=== PATIENT | male | born 1995 | race Caucasian/White ===

== ENCOUNTER 2019-11-24 07:40 | Outpatient (NON) | payer BC, SELFPAY ==
[2019-11-24 23:09] LABS: SARS-CoV-2 RNA PCR Negative
== END 2019-11-24 07:41 ==
PROVIDERS: PCP Emergency Medicine; Visit Provider Emergency Medicine
DX: R68.89 Other general symptoms and signs (principal); Z20.828 Contact with and (suspected) exposure to other viral communicable diseases
CPT/HCPCS: 87635; C9803; U0003

== ENCOUNTER 2020-01-07 06:54 | Outpatient (NON) | payer BC, SELFPAY ==
[2020-01-08 06:47] LABS: SARS-CoV-2 RNA PCR Negative
== END 2020-01-07 06:55 ==
PROVIDERS: PCP Emergency Medicine; Visit Provider Emergency Medicine
DX: Z20.828 Contact with and (suspected) exposure to other viral communicable diseases (principal)
CPT/HCPCS: 87635; C9803; U0003

== ENCOUNTER 2021-06-24 14:50 | Emergency (ER) | payer BC, SELFPAY ==
[2021-06-24 15:03] VITALS: BP 119/91; PULSE 93; RESP 16; TEMP 37.1; O2SAT 100
--- NOTE | 2021-06-24 15:33 | ED.URI ---
HPI - URI/Sore Throat General Chief Complaint: Upper Respiratory Infection Stated Complaint: Stuffy Nose,Cough,Shortness of Breath,Fatigue Time Seen by Provider: 06/24/21 15:15 Source: patient and RN notes reviewed Mode of arrival: ambulatory Limitations: no limitations History of Present Illness HPI Narrative: Patient presents today with a 3-day history of, congestion, rhinorrhea, fatigue, and sinus pressure. He had a sore throat on the first day of illness, but this has since resolved. Denies shortness of breath, fever. Denies any history of asthma or COPD. He does report history of, hayfever as a child. He has been using tea with honey and 1 dose of DayQuil with mild relief. States symptoms have improved since onset. MD elicited complaint: cough, nasal congestion and sinus pain Related Data Home Medications Medication Instructions Recorded Confirmed No Home Medications 06/24/21 06/24/21 Allergies Allergy/AdvReac Type Severity Reaction Status Date / Time No Known Allergies Allergy Verified 06/24/21 15:00 Review of Systems Review of Systems: CONSTITUTIONAL: Denies body aches, fever, chills, or sweats.+ Fatigue EYES: Denies visual changes, redness, or discharge. ENT: Denies sore throat, or otalgia.+ Congestion, rhinorrhea, sinus pressure CARDIOVASCULAR: Denies chest pain, palpitations, or edema. RESPIRATORY: Denies dyspnea.+ Cough GASTROINTESTINAL: Denies abdominal pain, nausea, vomiting, or diarrhea. GENITOURINARY: Denies dysuria or hematuria. SKIN: Denies rash, itching, or wounds. MUSCULOSKELETAL: Denies back pain, joint pain, or myalgia. NEUROLOGIC: Denies headache, numbness, tingling, or weakness. PSYCH: Denies depression or anxiety. PENDING SALE TO [facility] Past Medical History Medical History (Updated 06/24/21 @ 15:37 by Danya Burgess, SENIOR CLINICAL STUDY MANAGER, ) Seasonal allergies Comments At time of signature, I have reviewed and agree with nursing past medical, surgical, social and family history unless otherwise noted. Please see nursing chart for further information. There is no relevant family history pertinent to the presenting complaint Exam Narrative: GENERAL: Well-appearing, well-nourished, and in no acute distress. HEAD: Normocephalic, atraumatic. EYES: EOMI. No redness or drainage. Conjunctivae normal. ENT: Mucous membranes pink and moist. Nares congested. Bilateral swollen nasal turbinates with clear nasal drainage. TMs normal bilaterally. Throat normal with small amount of clear postnasal drainage. Uvula midline. NECK: Normal AROM. Supple. No lymphadenopathy. CHEST: No respiratory distress. Clear to auscultation. HEART: Regular rate and rhythm. No murmur appreciated. Normal peripheral pulses. EXTREMITIES: Normal range of motion. No edema. SKIN: Warm, dry, no rash. Capillary refill normal. Normal skin turgor. NEURO: No focal deficits. Alert and oriented x3. Gait steady. PSYCH: Normal affect. No signs of depression or anxiety. Course Course Level of Care: Express Care Visit Vital Signs Vital signs: Vital Signs Temperature 98.7 F 06/24/21 15:03 Pulse Rate 93 06/24/21 15:03 Respiratory Rate 16 06/24/21 15:03 Blood Pressure 119/91 H 06/24/21 15:03 Pulse Oximetry 100 06/24/21 15:03 Temperature 98.7 F 06/24/21 15:03 Pulse Rate 93 06/24/21 15:03 Respiratory Rate 16 06/24/21 15:03 Blood Pressure 119/91 H 06/24/21 15:03 Pulse Oximetry 100 06/24/21 15:03 Reviewed. Pt has been instructed to follow up with his PCP regarding his elevated blood pressure today. MDM - URI/Sore Throat Differential Diagnosis Differential diagnosis: Likely upper respiratory infection, otitis media, sinusitis, viral infection, bronchitis, influenza, pharyngitis and other (Strep throat, COVID-19) Lab Data Attestation: I reviewed the patient's lab results. Labs: Lab Results 06/24/21 Range/Units 15:10 POC SARS CoV-2 Ag Negative (Negative) Influenza A Screen Negative
== END 2021-06-24 15:36 | disposition home or self-care (01) ==
PROVIDERS: Emergency Provider Nurse Practitioner; PCP Emergency Medicine
DX: J30.89 Other allergic rhinitis (principal); Z20.822 Contact with and (suspected) exposure to COVID-19
CPT/HCPCS: 87081; 87426; 87804; 87880; 99213; C9803; G0463

== ENCOUNTER 2021-08-31 14:15 | Emergency (ER) | payer BC, SELFPAY ==
[2021-08-31 14:22] VITALS: BP 136/77; PULSE 107; RESP 12; TEMP 38; O2SAT 100
--- NOTE | 2021-08-31 14:41 | ED.URI ---
HPI - URI/Sore Throat General Chief Complaint: Upper Respiratory Infection Stated Complaint: Headache,Fatigue,Bilateral Eye Irriation Time Seen by Provider: 08/31/21 14:41 Source: patient, RN notes reviewed and old records reviewed Mode of arrival: ambulatory Limitations: no limitations History of Present Illness HPI Narrative: 26-year-old male who presents to [facility] with complaints of cleaning his shower which had mold on it using beba dish soap and sponge yesterday evening while running the water. He states that last night he started having headache, fatigue, and eye irritation and sore throat. Patient denies any visual changes, denies any shortness of breath or any acute cough. Patient is concerned that he is having reaction to mold. MD elicited complaint: other (headache fatigue and eye irritation) Related Data Home Medications Medication Instructions Recorded Confirmed No Home Medications 06/24/21 08/31/21 Allergies Allergy/AdvReac Type Severity Reaction Status Date / Time No Known Allergies Allergy Verified 08/31/21 14:22 Review of Systems Review of Systems: CONSTITUTIONAL: Denies known fever, chills, or sweats. EYES: Denies visual changes, redness, or discharge.reports eyes feel irritated ENT: positive rhinorrhea, congestion, sore throat, no otalgia. CARDIOVASCULAR: Denies chest pain, palpitations, or edema. RESPIRATORY: Denies cough or dyspnea. GASTROINTESTINAL: Denies abdominal pain, nausea, vomiting, or diarrhea. GENITOURINARY: Denies dysuria or hematuria. SKIN: Denies rash or itching. MUSCULOSKELETAL: Denies back pain, joint pain, or myalgia. NEUROLOGIC: positive for headache,no numbness, or weakness. PSYCHIATRIC: Denies anxiety or depression. All systems reviewed & are unremarkable except as noted in HPI and below PMFSH Past Medical History Medical History (Updated 09/02/21 @ 02:42 by Arcelia Pandey NP) Anxiety and depression History of ear infections as a child Seasonal allergies Surgical History Surgical History (Updated 09/02/21 @ 02:42 by Arcelia Pandey NP) No history of previous surgery Family History Family History (Updated 09/02/21 @ 02:43 by Arcelia Pandey NP) Grandparent Carcinoma of colon Heart disease Hypertension Social History Social History (Updated 09/02/21 @ 02:44 by Arcelia Pandey NP) Smoking status: Never smoker Alcohol intake: current Alcohol use details: rare Substance use: former Substance use type: marijuana Gender identity (if verbalized by the patient): Male Comments At time of signature, agree with nursing past medical, surgical, social and family history. There is no relevant family history pertinent to the presenting complaint Exam Narrative: GENERAL: Well-appearing, well-nourished, and in no acute distress. HEAD: Normocephalic, atraumatic. EYES: PERRLA and EOMI. ENT: Nares ed with clear rhinorrhea no epistaxis. Mucous membranes moist.TM's normal with good light reflex, throat red with no lesions or exudates or tonsil swelling. NECK: Supple, no lymphadenopathy CHEST: Clear to auscultation. No respiratory distress.SAO2 100% on room air HEART: Regular rate and rhythm. No murmur heard. Normal peripheral pulses. ABDOMEN: Soft, nontender, nondistended, normal active bowel sounds. EXTREMITIES: Normal range of motion. No edema. SKIN: Warm, dry, no rash. NEURO: No focal deficits. Alert and oriented x3. Course Course Level of Care: Express Care Visit Vital Signs Vital signs: Vital Signs Temperature 38.0 C H 08/31/21 14:22 Pulse Rate 107 H 08/31/21 14:22 Respiratory Rate 12 08/31/21 14:22 Blood Pressure 136/77 08/31/21 14:22 Pulse Oximetry 100 08/31/21 14:22 Oxygen Delivery Room Air 08/31/21 14:22 Temperature 38.0 C H 08/31/21 14:22 Pulse Rate 107 H 08/31/21 14:22 Respiratory Rate 12 08/31/21 14:22 Blood Pressure 136/77 08/31/21 14:22 Pulse Oximetry 100 08/31/21 14:22 Oxygen Del
== END 2021-08-31 15:14 | disposition home or self-care (01) ==
PROVIDERS: Emergency Provider Registered Nurse; PCP Emergency Medicine
DX: J06.9 Acute upper respiratory infection, unspecified (principal)
CPT/HCPCS: 87081; 87880; 99213; G0463

== ENCOUNTER 2023-02-15 13:36 | Emergency (ER) | payer BC, SELFPAY ==
[2023-02-15 13:44] VITALS: BP 131/79; PULSE 85; RESP 16; TEMP 36.8; O2SAT 98
--- NOTE | 2023-02-15 14:15 | ED.URI ---
HPI - URI/Sore Throat General Chief Complaint: Upper Respiratory Infection Stated Complaint: Sore Throat/Ear Irritation Time Seen by Provider: 02/15/23 14:02 Source: patient and RN notes reviewed Mode of arrival: ambulatory Limitations: no limitations History of Present Illness HPI Narrative: Patient presents today complaining of sore throat, right ear pain, rhinorrhea, body aches, fatigue. Symptoms began yesterday. Currently rates his pain 4/10 and has tried no [id number] treatment prior to arrival. Patient called off work and needs a note to return. He is requesting to be tested for influenza, COVID, and strep Related Data Home Medications Medication Instructions Recorded Confirmed No Home Medications 06/24/21 02/15/23 Allergies Allergy/AdvReac Type Severity Reaction Status Date / Time No Known Allergies Allergy Verified 02/15/23 13:42 Review of Systems Review of Systems: CONSTITUTIONAL: Denies fever, chills, or sweats.+ body aches, fatigue EYES: Denies visual changes, redness, or discharge. ENT: Denies congestion. + rhinorrhea, sore throat, right ear pain CARDIOVASCULAR: Denies chest pain, palpitations, or edema. RESPIRATORY: Denies cough or dyspnea. GASTROINTESTINAL: Denies abdominal pain, nausea, vomiting, or diarrhea. GENITOURINARY: Denies dysuria or hematuria. SKIN: Denies rash, itching, or wounds. MUSCULOSKELETAL: Denies back pain, joint pain, or myalgia. NEUROLOGIC: Denies headache, numbness, tingling, or weakness. PSYCH: Denies depression or anxiety. [facility] Past Medical History Medical History Anxiety and depression History of ear infections as a child Seasonal allergies Surgical History Surgical History No history of previous surgery Family History Family History Grandparent Carcinoma of colon Heart disease Hypertension Social History Social History Smoking status: Never smoker Alcohol intake: current Alcohol use details: rare Substance use: former Substance use type: marijuana Gender identity (if verbalized by the patient): Male Comments At time of signature, I have reviewed and agree with nursing past medical, surgical, social and family history unless otherwise noted. Please see nursing chart for further information. There is no relevant family history pertinent to the presenting complaint Exam Narrative: GENERAL: Well-appearing, well-nourished, and in no acute distress. HEAD: Normocephalic, atraumatic. EYES: EOMI. No redness or drainage. Conjunctivae normal. ENT: Mucous membranes pink and moist. Nares clear. No rhinorrhea. TMs normal bilaterally. Throat normal. Uvula midline. NECK: Normal AROM. Supple. No lymphadenopathy. CHEST: No respiratory distress. Clear to auscultation. HEART: Regular rate and rhythm. No murmur appreciated. EXTREMITIES: Normal range of motion. No edema. SKIN: Warm, dry, no rash. Capillary refill normal. Normal skin turgor. NEURO: No focal deficits. Alert and oriented x3. Gait steady. PSYCH: Normal affect. No signs of depression or anxiety. Course Course Level of Care: Express Care Visit Vital Signs Vital signs: Vital Signs Temperature 98.3 F 02/15/23 13:44 Pulse Rate 85 02/15/23 13:44 Respiratory Rate 16 02/15/23 13:44 Blood Pressure 131/79 02/15/23 13:44 Pulse Oximetry 98 02/15/23 13:44 Oxygen Delivery Room Air 02/15/23 13:44 Temperature 98.3 F 02/15/23 13:44 Pulse Rate 85 02/15/23 13:44 Respiratory Rate 16 02/15/23 13:44 Blood Pressure 131/79 02/15/23 13:44 Pulse Oximetry 98 02/15/23 13:44 Oxygen Delivery Room Air 02/15/23 13:44 Reviewed MDM - URI/Sore Throat MDM Narrative Medical decision making narrative:
== END 2023-02-15 14:19 | disposition home or self-care (01) ==
PROVIDERS: Emergency Provider Nurse Practitioner; PCP Emergency Medicine
DX: B34.9 Viral infection, unspecified (principal); Z20.822 Contact with and (suspected) exposure to COVID-19
CPT/HCPCS: 87081; 87426; 87804; 87880; 99213; C9803; G0463